=== PATIENT | female | born 1990 | race Caucasian/White ===

== ENCOUNTER 2019-03-11 20:27 | Emergency (ER) | payer MEDICAID ==
[~2019-03-11] VITALS: Ht 162.6 cm; Wt 66.1 kg
[2019-03-11] MEDS ORDERED: ACETAMINOPHEN 325MG TABLET PO STA (23:02)
[2019-03-11] MEDS ORDERED: SODIUM CHLORIDE 0.9% 1,000 ML IV ONE (23:02)
[2019-03-11 23:40] LABS: BASOPHILS % 0.6 % (0.0-2.0); EOSINOPHILS % 0.3 % (0.0-5.0); HEMATOCRIT. 33.5 % (36.0-48.0); HEMOGLOBIN. 10.9 g/dL (12.0-16.0); LYMPHOCYTES % 15.4 % (20.0-50.0); MEAN CORPUSCULAR HEMOGLOBIN 23.8 pg (28.0-32.0); MEAN CORPUSCULAR VOLUME 73.3 fL (81.0-99.0); MEAN PLATELET VOLUME 10.5 fl (7.4-10.4); MONOCYTES % 6.3 % (2.0-8.0); NEUTROPHILS % 77.4 % (40.0-76.0); PLATELET 211 x1000/uL (130-400); RED BLOOD CELL COUNT 4.57 mill/uL (4.2-5.4); RED CELL DISTRIBUTION WIDTH 22.9 % (11.6-14.6)
[2019-03-11 23:45] LABS: CHLORIDE 104 mEq/L (98-107)
[2019-03-11 23:48] LABS: PLATELET ESTIMATE NORMAL
[2019-03-12 02:34] LABS: CLARITY URINE CLEAR (CLEAR); COLOR URINE YELLOW (YELLOW); KETONES URINE 2+ (NEGATIVE); LEUKOCYTE ESTERASE URINE NEGATIVE (NEGATIVE); NITRITE URINE NEGATIVE (NEGATIVE); OCCULT BLOOD URINE NEGATIVE (NEGATIVE); PROTEIN URINE NEGATIVE (NEGATIVE); SPECIFIC GRAVITY URINE 1.007 (1.005-1.030); UROBILINOGEN URINE 0.2 E.U./dL (0.2-1.0)
[2019-03-12 04:36] VITALS: BP 121/71
== END 2019-03-12 04:39 | disposition home or self-care (01) ==
LOC: ER 20:27
DX: O26.891 Other specified pregnancy related conditions, first trimester (principal); B34.9 Viral infection, unspecified; Z3A.11 11 weeks gestation of pregnancy
CPT/HCPCS: 36415; 76801; 80053; 81003; 84484; 85025; 93005; 96360; 96361; 99284; J7030